=== PATIENT | female | born 1975 | race Caucasian/White ===

== ENCOUNTER 2023-05-29 11:40 | Inpatient (IN) ==
--- NOTE | 2023-05-29 11:58 | ED Triage Note ---
Date of Service May 29, 2023 Provider in Triage Author: Edgardo Boogie History of Present Illness This patient was briefly evaluated while in triage. An abbreviated physical exam was performed. This patient is a 47-year-old Female who was referred to the emergency department from [facility] for evaluation of shortness of breath, fever and increased pulse rate. Patient reports that no testing was done at [facility]. There is concern for pneumonia. The patient does have COPD as well, and has not tried her inhaler as she was concerned that she would vomit. Physical Exam CONSTITUTIONAL: Healthy and well nourished. HEENT: No scleral icterus or conjunctival injection/pallor. NECK: Full active range of motion without discomfort. LYMPHATICS: No cervical chain adenopathy. RESPIRATORY: Clear to auscultation bilaterally with no wheezing, crackles, rhonchi or stridor. Lung sounds are distant. MUSCULOSKELETAL: Full range of motion of all joints without discomfort. INTEGUMENTARY: No rash or other significant dermatologic conditions noted. HEMATOLOGIC: No ecchymosis or petechiae. PSYCHIATRIC: Positive affect. NEUROLOGIC: No focal neurologic deficits noted. Initial orders for labs and / or imaging were placed and patient was placed in the waiting area until a bed is available. Please see further documentation for the full ED course.
[2023-05-29 12:24] LABS: Hematocrit (blood only) 38.6 % (37.0-47.0); Hemoglobin 12.5 g/dl (12.0-16.0); Mean Corpuscular Hemoglobin 31.3 pg (25.0-34.0); Mean Corpuscular Hgb Conc 32.4 g/dL (32.0-36.0); Mean Corpuscular Volume 96.7 fL (80.0-100.0); Mean Platelet Volume 9.6 fL (9.4-12.4); Platelet Count 261 K/uL (130-400); RDW Coefficient of Variation 15.1 % (11.5-14.5); RDW Standard Deviation 54.1 fL (36.4-46.3); Red Blood Count 3.99 M/uL (4.20-5.40); White Blood Count 18.63 K/ul (4.8-10.8)
--- NOTE | 2023-05-29 12:36 | XRay Report ---
XR chest 1V portable HISTORY: 47 years-old Female Dyspnea COMPARISON: Chest CT 02/21/2019 TECHNIQUE: AP view of the chest FINDINGS: Cardiac silhouette is normal in size. No pneumothorax, pleural effusion or overt pulmonary edema. The re is dense left perihilar/left upper lobe consolidation along with a 2.6 and meter nodular focus of consolidation within left midlung. There is an additional 1.3 cm nodular focus of consolidation withi n the left lung base. The right lung is clear. Bones appear grossly intact. IMPRESSION: Airspace consolidation throughout the left lung favors pneumonia, however short-term foll ow-up radiographs after treatment course are needed in order to document complete resolution. ACT 112: Negative or not required by law. The above report was generated using voice recognition software. It may contain grammatical, syntax o r spelling errors. Electronically signed by: Kristian Mendiola M.D. 05/29/2023 12:34 PM
[2023-05-29 12:52] LABS: Albumin Level 3.9 gm/dl (3.4-5.0); BUN Creatinine Ratio 9.4 (10-20); Bilirubin,Total 0.6 mg/dl (0.2-1.0); Calcium 9.3 mg/dl (8.6-10.3); Creatinine Clr Calc Pharmacy 70.7 ml/min; Est GFR (African American) 93.9 ml/min; Globulin 3.9 gm/dl (2.5-4.0); Magnesium 2.1 mg/dl (1.7-2.4); Potassium 2.9 mmol/L (3.5-5.1); Total Protein 7.8 gm/dl (6.0-8.3)
[2023-05-29 12:56] LABS: INR 0.9 (0.9-1.1); Partial Thromboplastin Ratio 1.1; Partial Thromboplastin Time 31 Seconds (21-31); Prothrombin Time 10.3 Seconds (9.0-12.0)
[2023-05-29 12:58] LABS: Troponin I High Sensitivity 19.6 pg/ml (0-14)
[2023-05-29 13:01] LABS: Pregnancy Test, Serum Negative (Negative)
[2023-05-29 13:07] LABS: Dohle Bodies Occasional
[2023-05-29 13:13] LABS: Basophils % (auto) 0.5 %; Eosinophils # (auto) 0.01 K/uL (0.00-0.50); Eosinophils % (auto) 0.1 %; Immature Granulocytes # (auto) 0.46 K/uL (0.01-0.20); Immature Granulocytes % (auto) 2.5 %; Lymphocytes # (auto) 0.81 K/uL (1.20-3.40); Lymphocytes % (auto) 4.3 %; Monocytes # (auto) 0.28 K/uL (0.11-0.59); Monocytes % (auto) 1.5 %; Neutrophils # (auto) 16.97 K/uL (1.40-6.50); Neutrophils % (auto) 91.1 %
[2023-05-29 13:31] LABS: Adenovirus PCR Not Detected (NotDetected); Bordetella parapertussis PCR Not Detected (NotDetected); Bordetella pertussis PCR Not Detected (NotDetected); Chlamydia pneumoniae PCR Not Detected (NotDetected); Coronavirus 229E PCR Not Detected (NotDetected); Coronavirus CoV-2 (COVID19)PCR Not Detected (NotDetected); Coronavirus HKU1 PCR Not Detected (NotDetected); Coronavirus NL63 PCR Not Detected (NotDetected); Coronavirus OC43PCR Not Detected (NotDetected); Human Metapneumovirus PCR Not Detected (NotDetected); Influenza A PCR Not Detected (NotDetected); Influenza B PCR Not Detected (NotDetected); Mycoplasma pneumoniae PCR Not Detected (NotDetected); Parainfluenza Virus 1 PCR Not Detected (NotDetected); Parainfluenza Virus 2 PCR Not Detected (NotDetected); Parainfluenza Virus 3 PCR Not Detected (NotDetected); Parainfluenza Virus 4 PCR Not Detected (NotDetected); Respiratory Syncytial VirusPCR Not Detected (NotDetected); Rhinovirus/Enterovirus PCR Not Detected (NotDetected)
[2023-05-29] MEDS: POTASSIUM CHLORIDE / WTR 10 MEQ/100 ML PLCT IV SCH (14:32)
[2023-05-29] MEDS: SODIUM CHLORIDE 0.9% 2,000 ML IV ONE (14:33)
--- NOTE | 2023-05-29 14:34 | Emergency Department Note ---
Impression & Plan Community acquired pneumonia, Leukocytosis, Acute hypokalemia, Non-ST elevation MT (NSTEMI), Sepsis, Elevated procalcitonin ED Provider Note HISTORY OF PRESENT ILLNESS: Patient is a 47-year-old female presenting with shortness of breath and left- sided chest pain. Patient reports that for the last 3 days she has been having a fever up to 102. She states that she also developed left-sided chest pain and difficulty breathing. Reports that she has immense pain in the left side of her chest every time she tries to take a deep breath. Denies any DVT or PE history. She is not on any anticoagulation. She has a history of COPD/asthma. Denies any recent antibiotic or steroid use. She denies any recent sick contact exposures. She does report she had a fever of 102 earlier this morning and last took an antipyretic at 4 AM. She denies any history of cardiac stents. She denies any nausea or vomiting. Denies any recent travel. ROS: as above PHYSICAL EXAM: Constitutional: Patient appears in no acute distress. HENT: Head: Normocephalic and atraumatic. Eyes: EOMI, PERRL Mouth/Throat: Mucous membranes moist. Neck: Trachea midline. Neck supple. Cardiovascular: Tachycardic with regular rhythm. No murmurs, rubs or gallops. Intact distal pulses. Pulmonary/Chest: No respiratory distress. Breath sounds clear and equal bilaterally. Patient is tachypneic. Abdominal: Abdomen soft, no tenderness, rebound or guarding. Musculoskeletal: No edema, tenderness or deformity noted. Skin: Warm and dry. No rash, erythema, pallor or cyanosis Psychiatric: Appropriate mood and affect for situation. Neurological: Alert and keenly responsive. CN II-XII grossly intact, moving all extremities equally and fully. MDM: - Vitals signs showed tachycardia and tachypnea. - History obtained via patient. History as above. - Chronic conditions affecting care: COPD - Differential diagnoses include, but are not limited to: acute coronary syndrome; COPD/asthma exacerbation; pulmonary edema; pulmonary embolism; pneumonia; pneumothorax; viral syndrome - Order placed for continuous cardiac monitoring. At this time, monitor showed rate of 119 bpm with normal sinus rhythm, per my interpretation. - External medical records reviewed. Pulmonary office visit dated 04/14/2023 was reviewed. Patient follows in their clinic for her COPD and allergic asthma. - EKG interpreted by myself showed normal sinus rhythm. Rate tachycardic at 109 bpm. QT 328. No acute ischemic changes. - Laboratory workup interpreted by myself showed leukocytosis (WBC 18.63) with left shift; normal PT/INR; hyponatremia (Na 132); hypokalemia (K 2.9); normal magnesium; elevated troponin (19.6); elevated procalcitonin (3.21) - CXR shows left-sided middle lobe pneumonia, per my interpretation - Given patient's tachycardia, tachypnea, leukocytosis and pneumonia, she meets sepsis criteria. Blood cultures, procalcitonin and lactate ordered. 2L NS ordered - patient's sepsis fluid volume resuscitation based on ideal body weight is 1500 mL. - IV rocephin and doxycycline ordered for community acquired pneumonia coverage. - Patient given 30 mEq IV potassium total for electrolyte replacement. - NSTEMI likely type II in setting of pneumonia. - Patient given 1g IV tylenol and 50 mcg IV fentanyl for her chest pain. - Discussion was had with [employer] about patient's case and need for admission - Hospitalist consulted for admission - Patient admitted to [facility] service for further evaluation and management. ASSESSMENT AND PLAN: Diagnosis: community acquired pneumonia; leukocytosis; acute hypokalemia; sepsis; NSTEMI; elevated procalcitonin Plan: Admit Past Med/Surg History Medical History (Updated 05/29/23 @ 15:23 by Amparo Elizondo MD) Chronic obstructive pulmonary disease on long-term inhaled steroid therapy Allergic asthma Shortness of breath Pulmonary air trapping COPD (chronic obstructive pulmonary disease) Engages in non-nicotine containing substance vaping Tobacco abuse Electronic cigarette use Abnormal CT scan, chest Left upper lobe pulmonary nodule Bronchiectasis without complication Moderate persistent asthma without complication Borderline personality disorder History of gestational diabetes History of abnormal cervical Pap smear Cervical cancer COPD (chronic obstructive pulmonary disease) OCD (obsessive compulsive disorder) Anxiety Surgical History S/P wisdom tooth extraction H/O LEEP History of cataract surgery bilateral History of myringotomy BMT (1983) History of adenoidectomy History of tonsillectomy Family History Denies family history of Ovarian cancer Breast cancer Colorectal cancer Uterine cancer Social History (Updated 09/10/22 @ 12:56 by Odette Higgins RN) Smoking Status: Never smoker Tobacco Type: E-cigarettes / Vaping Age Started Using Tobacco: 12; Age Quit Using Tobacco: 44; Cigarettes Per Day: quit cigarettes in 2020 and started vaping; Second Hand Exposure: Yes; Do You Dip or Chew Tobacco: No; Hx Alcohol Use: Yes Alcohol type: beer Hx Substance Use: Yes (medical marijuana (have not used since moved 10/2018)) Last Used Substance Other:: 10/2018 Preferred Language: Estonian Communication Ability: Effective Potato Sorter Required: No Beliefs That Will Affect Care: None Current Living Situation: Spouse Feels Safe at Home: Yes Assistive Devices: Glasses Allergies Allergies Allergy/AdvReac Type Severity Reaction Status Date / Time azithromycin [From Zithromax] Allergy Severe Anaphylaxis Verified 04/08/23 14:06 erythromycin base AdvReac Mild Nausea Verified 04/08/23 14:06 Home Meds Home Medications Medication Instructions Recorded Confirmed lamotrigine 200 mg tablet 200 mg PO BID 11/24/18 05/29/23 desvenlafaxine succinate 25 mg See Rx Instructions .Route .COMPLEX 01/12/20 05/29/23 tablet,extended release 24 hr (Pristiq) aripiprazole 5 mg tablet (Abilify) 2.5 mg PO DAILY 02/25/22 05/29/23 acetaminophen 500 mg tablet 500 mg PO Q6H PRN Pain 05/29/23 05/29/23 desvenlafaxine succinate 50 mg See Rx Instructions .Route .COMPLEX 05/29/23 05/29/23 tablet,extended release 24 hr ibuprofen 200 mg tablet (Advil) 200 mg PO Q6H PRN Pain 05/29/23 05/29/23 mirabegron 25 mg tablet,extended 25 mg PO DAILY 05/29/23 05/29/23 release 24 hr (Myrbetriq) trazodone 50 mg tablet 25 - 50 mg PO HS 05/29/23 05/29/23 Previous Rx's Medication Instructions Recorded nebulizers #1 ea 05/16/21 albuterol sulfate 90 mcg/actuation 2 puff inhalation QID PRN 11/28/22 aerosol inhaler SHORTNESS OF BREATH #18 grams montelukast 10 mg tablet 10 mg PO DAILY #30 tabs 12/22/22 fluticasone fur. 200 mcg-umeclid 1 inh inhalation DAILY #60 ea 04/15/23 62.5 mcg-vilant 25 mcg inhalat.powder (Trelegy Ellipta) Results & Data (ED) Vital Signs Vital Signs - 24 hr 05/29/23 11:54 05/29/23 14:13 05/29/23 14:14 Temperature 37.3 C Temperature Source Temporal Artery Scan Pulse Rate 118 H 118 H Pulse Rate [Apical] 118 H Pulse Rate from SpO2 Sensor Pulse Rhythm Regular Pulse Rhythm [Apical] Regular Pulse Strength [Apical] Normal Respiratory Rate 17 26 H 26 H Respiratory Effort / Characteristics Non-Labored Spontaneous Spontaneous Short of Breath Respiratory Depth Normal Shallow Respiratory Pattern Tachypnea Blood Pressure 122/75 Blood Pressure [Right Arm] 131/81 Blood Pressure Mean 90 Blood Pressure Mean [Right Arm] 97 Blood Pressure Position [Right Arm] Standing Pulse Oximetry 98 93 93 Oxygen Delivery Method Room Air Room Air Room Air Sepsis Recent Fever Within 48 Hours Yes Sepsis New/Unexplained Change in Mental Status No Sepsis Action Taken by Nursing No Action Required 05/29/23 14:20 05/29/23 14:22 05/29/23 14:30 Temperature Temperature Source Pulse Rate 112 H 109 H Pulse Rate [Apical] Pulse Rate from SpO2 Sensor 111 H Pulse Rhythm Pulse Rhythm [Apical] Pulse Strength [Apical] Respiratory Rate 19 Respiratory Effort / Characteristics Respiratory Depth Respiratory Pattern Blood Pressure 132/80 Blood Pressure [Right Arm] Blood Pressure Mean 87 Blood Pressure Mean [Right Arm] Blood Pressure Position [Right Arm] Pulse Oximetry 97 Oxygen Delivery Method Sepsis Recent Fever Within 48 Hours Sepsis New/Unexplained Change in Mental Status Sepsis Action Taken by Nursing 05/29/23 14:30 05/29/23 14:40 05/29/23 14:50 Temperature Temperature Source Pulse Rate 109 H 109 H 111 H Pulse Rate [Apical] Pulse Rate from SpO2 Sensor 108 H 110 H 111 H Pulse Rhythm Pulse Rhythm [Apical] Pulse Strength [Apical] Respiratory Rate 21 17 15 Respiratory Effort / Characteristics Respiratory Depth Respiratory Pattern Blood Pressure Blood Pressure [Right Arm] Blood Pressure Mean Blood Pressure Mean [Right Arm] Blood Pressure Position [Right Arm] Pulse Oximetry 96 98 96 Oxygen Delivery Method Sepsis Recent Fever Within 48 Hours Sepsis New/Unexplained Change in Mental Status Sepsis Action Taken by Nursing 05/29/23 15:00 05/29/23 15:00 05/29/23 15:10 Temperature Temperature Source Pulse Rate 110 H 110 H Pulse Rate [Apical] Pulse Rate from SpO2 Sensor 109 H 110 H Pulse Rhythm Pulse Rhythm [Apical] Pulse Strength [Apical] Respiratory Rate 15 21 Respiratory Effort / Characteristics Respiratory Depth Respiratory Pattern Blood Pressure 113/71 Blood Pressure [Right Arm] Blood Pressure Mean 85 Blood Pressure Mean [Right Arm] Blood Pressure Position [Right Arm] Pulse Oximetry 96 95 Oxygen Delivery Method Sepsis Recent Fever Within 48 Hours Sepsis New/Unexplained Change in Mental Status Sepsis Action Taken by Nursing Laboratory Data 05/29/23 12:07 05/29/23 12:07 Lab Results 05/29/23 05/29/23 Range/Units 12:00 12:07 WBC 18.63 H (4.8-10.8) K/ul RBC 3.99 L (4.20-5.40) M/uL Hgb 12.5 (12.0-16.0) g/dl Hct 38.6 (37.0-47.0) % MCV 96.7 (80.0-100.0) fL MCH 31.3 (25.0-34.0) pg MCHC 32.4 (32.0-36.0) g/dL RDW Std Deviation 54.1 H (36.4-46.3) fL RDW Coeff of Vidhi 15.1 H (11.5-14.5) % Plt Count 261 (130-400) K/uL MPV 9.6 (9.4-12.4) fL Immature Gran % (Auto) 2.5 % Neut % (Auto) 91.1 % Lymph % (Auto) 4.3 % [place] % (Auto) 1.5 % Eos % (Auto) 0.1 % Baso % (Auto) 0.5 % Neut # (Auto) 16.97 H (1.40-6.50) K/uL Lymph # (Auto) 0.81 L (1.20-3.40) K/uL [place] # (Auto) 0.28 (0.11-0.59) K/uL Eos # (Auto) 0.01 (0.00-0.50) K/uL Baso # (Auto) 0.10 (0.00-0.20) K/uL Immature Gran # (Auto) 0.46 H (0.01-0.20) K/uL Dohle Bodies Occasional PT 10.3 (9.0-12.0) Seconds INR 0.9 (0.9-1.1) APTT 31 (21-31) Seconds PTT Ratio 1.1 Sodium 132 L (136-145) mmol/L Potassium 2.9 L (3.5-5.1) mmol/L Chloride 95 L (98-107) mmol/L Carbon Dioxide 27 (21-32) mmol/L Anion Gap 10 (3-11) BUN 8 (6-23) mg/dl Creatinine 0.85 (0.6-1.2) mg/dl Est Cr Clr Drug Dosing 70.7 ml/min Est GFR ( Amer) 93.9 ml/min Est GFR (Non-Af Amer) 81.0 ml/min BUN/Creatinine Ratio 9.4 L (10-20) Glucose 167 H (70-99(Fasting)) mg/dl Calcium 9.3 (8.6-10.3) mg/dl Magnesium 2.1 (1.7-2.4) mg/dl Total Bilirubin 0.6 (0.2-1.0) mg/dl AST 20 (13-39) U/L ALT 17 (7-52) U/L Alkaline Phosphatase 100 (34-104) U/L Troponin I High Sens 19.6 H (0-14) pg/ml Total Protein 7.8 (6.0-8.3) gm/dl Albumin 3.9 (3.4-5.0) gm/dl Globulin 3.9 (2.5-4.0) gm/dl Albumin/Globulin Ratio 1.0 (0.9-2) Procalcitonin 3.21 H (0-0.5) ng/ml HCG, Qual Negative (Negative) Adenovirus (PCR) Not Detected (NotDetected) B. pertussis DNA (PCR) Not Detected (NotDetected) B.parapertussis DNA PCR Not Detected (NotDetected) C. pneumoniae DNA (PCR) Not Detected (NotDetected) Coronavirus OC43 (PCR) Not Detected (NotDetected) Coronavirus HKU1 (PCR) Not Detected (NotDetected) Coronavirus 229E (PCR) Not Detected (NotDetected) SARS-CoV-2 (PCR) Not Detected (NotDetected) Coronavirus NL63 (PCR) Not Detected (NotDetected) Human Metapneumovir PCR Not Detected (NotDetected) Influenza Type A (PCR) Not Detected (NotDetected) Influenza Type B (PCR) Not Detected (NotDetected) M. pneumoniae (PCR) Not Detected (NotDetected) Parainfluenza 1 (PCR) Not Detected (NotDetected) Parainfluenza 2 (PCR) Not Detected (NotDetected) Parainfluenza 3 (PCR) Not Detected (NotDetected) Parainfluenza 4 (PCR) Not Detected (NotDetected) RSV (PCR) Not Detected (NotDetected) Entero/Rhino (PCR) Not Detected (NotDetected) Administered Medications Sodium Chloride (Nss) 2,000 mls @ 999 mls/hr IV .Q2H1M ONE Stop: 05/29/23 16:19 Last Admin: 05/29/23 14:33 Dose: 999 mls/hr Documented By: LUIZ Potassium Chloride (K Jorge / Wtr) 10 meq in 100 mls @ 100 mls/hr IV Q1H NICOLE Stop: 05/29/23 17:29 Last Admin: 05/29/23 14:32 Dose: 100 mls/hr Documented By: LUIZ Discontinued Medications Fentanyl Citrate (Fentanyl Citrate Pf 100 Mcg/2 Ml Vial) 50 mcg IV NOW STA Stop: 05/29/23 14:32 Last Admin: 05/29/23 14:44 Dose: 50 mcg Documented By: VOLODYMYR Ceftriaxone Sodium (Rocephin) 1,000 mg in 50 mls @ 100 mls/hr IV NOW STA Stop: 05/29/23 14:48 Last Admin: 05/29/23 15:11 Dose: 100 mls/hr Documented By: VOLODYMYR Acetaminophen (Ofirmev) 1,000 mg in 100 mls @ 400 mls/hr IV NOW STA Stop: 05/29/23 14:45 Last Infusion: 05/29/23 14:58 Dose: Infused Documented By: Admin: 05/29/23 14:43 Dose: 400 mls/hr Documented By: VOLODYMYR Imaging Data Radiologist's Impression: Chest X-Ray 05/29/23 11:58 XR chest 1V portable HISTORY: 47 years-old Female Dyspnea COMPARISON: Chest CT 02/21/2019 TECHNIQUE: AP view of the chest FINDINGS: Cardiac silhouette is normal in size. No pneumothorax, pleural effusion or overt pulmonary edema. There is dense left perihilar/left upper lobe consolidation along with a 2.6 and meter nodular focus of consolidation within left midlung. There is an additional 1.3 cm nodular focus of consolidation within the left lung base. The right lung is clear. Bones appear grossly intact. IMPRESSION: Airspace consolidation throughout the left lung favors pneumonia, however short-term follow-up radiographs after treatment course are needed in order to document complete resolution. ACT 112: Negative or not required by law. The above report was generated using voice recognition software. It may contain grammatical, syntax or spelling errors. Electronically signed by: Kristian Mendiola M.D. 05/29/2023 12:34 PM Discharge Plan Visit Data Chief Complaint: Shortness of Breath/Dyspnea Stated Complaint: SOB, FEVER, HIGH PLUSE RATE ED Provider: Amparo Elizondo Discharge Problem: Community acquired pneumonia, Leukocytosis, Acute hypokalemia, Non-ST elevation MT (NSTEMI), Sepsis, Elevated procalcitonin Forms Stand Alone Forms: My [facility] [place] [employer] Prescriptions Prescriptions: No Action montelukast 10 mg tablet 10 mg PO DAILY Qty: 30 6RF Trelegy Ellipta 200-62.5-25 mcg blister with device 1 inh inhalation DAILY Qty: 60 2RF (DME) nebulizers Mis See Rx Instructions .Route Qty: 1 0RF Rx Instructions: As directed desvenlafaxine succinate [Pristiq] 25 mg tablet extended release 24 hr See Rx Instructions .ROUTE .COMPLEX Rx Instructions: Take 25mg w/ 50mg tablet to equal 75mg by mouth every morning aripiprazole [Abilify] 5 mg tablet 2.5 mg PO DAILY albuterol sulfate 90 mcg/actuation HFA aerosol inhaler 2 puff inhalation QID PRN (Reason: SHORTNESS OF BREATH) Qty: 18 3RF lamotrigine 200 mg tablet 200 mg PO BID trazodone 50 mg tablet 25 - 50 mg PO HS acetaminophen [Tylenol Ex Str Rapid Release] 500 mg Tablet 500 mg PO Q6H PRN (Reason: Pain) ibuprofen [Advil] 200 mg Tablet 200 mg PO Q6H PRN (Reason: Pain) desvenlafaxine succinate 50 mg tablet extended release 24 hr See Rx Instructions .ROUTE .COMPLEX Rx Instructions: Take 50mg w/ 25mg tablet to equal 75mg by mouth every morning Myrbetriq 25 mg tablet extended release 24 hr 25 mg PO DAILY Referrals Referrals: Ena Chang PA-C [Primary Care Provider] -
[2023-05-29] MEDS: ACETAMINOPHEN 1,000 MG/100 ML VIAL IV STA (14:43)
[2023-05-29] MEDS: fentaNYL citrate PF 100 MCG/2 ML VIAL IV STA (14:44)
[2023-05-29] MEDS: cefTRIAXone SODIUM 1,000 MG/50 ML BAG IV STA (15:11)
[2023-05-29] MEDS: DOXYCYCLINE HYCLATE 100 MG in DEXTROSE 5% MINI-B 100 ML IV STA (15:31)
--- NOTE | 2023-05-29 15:57 | History & Physical Report ---
Date of Service May 29, 2023 Assessment & Plan (1) Sepsis: Plan: Source = pneumonia Lactate initial 3.1. NSS 2L bolus ordered. Repeat pending. Follow up blood and sputum culture. (2) Community acquired pneumonia: Plan: Ceftriaxone + doxycycline Incentive spirometer Flutter valve Pleuritic pain - Acetaminophen 1st line, Toradol 2nd line, oxycodone 3rd line Follow up CXR in 4-6 weeks recommended for resolution especially with smoking history (3) Chronic obstructive pulmonary disease on long-term inhaled steroid therapy: Plan: No acute exacerbation suspected given lack of improvement of duonebs as outpatient and lack of wheezing on exam Continue her routine inhalers with duonebs PRN (4) Allergic asthma: (5) Engages in vaping: Plan: Encouraged cessation and she appears motivated to quit Plan VTE prophylaxis - Lovenox 40 mg subcu daily Diet - regular Disposition - admit to PCU Admission and Anticipated Discharge Date Admission Date: May 29, 2023 History of Present Illness Chief Complaint: Shortness of breath and chest pain Primary Care Provider: Ena Chang Zeinab Veronica is a 47 year old female with extensive smoking and current vaping history, COPD/asthma who presents to the ER with shortness of breath, left-sided chest pain, headache (mainly with coughing), non productive cough and fever. Symptoms started on Thursday - like someone laying on chest the left side of her chest, only painful on inspiration, not positional/exertional. Temp 102 yesterday. Saw PCP today and recommended coming to the ER due to fever and tachycardia. Allergies Allergy/AdvReac Type Severity Reaction Status Date / Time azithromycin [From Zithromax] Allergy Severe Anaphylaxis Verified 05/29/23 15:22 erythromycin base AdvReac Mild Nausea Verified 05/29/23 15:22 Home Medications Medication Instructions Recorded Confirmed Type lamotrigine 200 mg tablet 200 mg PO BID 11/24/18 05/29/23 History desvenlafaxine succinate 25 mg See Rx Instructions .Route .COMPLEX 01/12/20 05/29/23 History tablet,extended release 24 hr (Pristiq) nebulizers #1 ea 05/16/21 04/08/23 Rx aripiprazole 5 mg tablet (Abilify) 2.5 mg PO DAILY 02/25/22 05/29/23 History albuterol sulfate 90 mcg/actuation 2 puff inhalation QID PRN 11/28/22 05/29/23 Rx aerosol inhaler SHORTNESS OF BREATH #18 grams montelukast 10 mg tablet 10 mg PO DAILY #30 tabs 12/22/22 05/29/23 Rx fluticasone fur. 200 mcg-umeclid 1 inh inhalation DAILY #60 ea 04/15/23 05/29/23 Rx 62.5 mcg-vilant 25 mcg inhalat.powder (Trelegy Ellipta) acetaminophen 500 mg tablet 500 mg PO Q6H PRN Pain 05/29/23 05/29/23 History desvenlafaxine succinate 50 mg See Rx Instructions .Route .COMPLEX 05/29/23 05/29/23 History tablet,extended release 24 hr ibuprofen 200 mg tablet (Advil) 200 mg PO Q6H PRN Pain 05/29/23 05/29/23 History mirabegron 25 mg tablet,extended 25 mg PO DAILY 05/29/23 05/29/23 History release 24 hr (Myrbetriq) trazodone 50 mg tablet 25 - 50 mg PO HS 05/29/23 05/29/23 History Past Med/Surg History Medical History (Updated 05/29/23 @ 19:09 by Toro Owens MD) Chronic obstructive pulmonary disease on long-term inhaled steroid therapy Allergic asthma Shortness of breath Pulmonary air trapping COPD (chronic obstructive pulmonary disease) Engages in non-nicotine containing substance vaping Tobacco abuse Electronic cigarette use Abnormal CT scan, chest Left upper lobe pulmonary nodule Bronchiectasis without complication Moderate persistent asthma without complication Borderline personality disorder History of gestational diabetes History of abnormal cervical Pap smear Cervical cancer COPD (chronic obstructive pulmonary disease) OCD (obsessive compulsive disorder) Anxiety Surgical History S/P wisdom tooth extraction H/O LEEP History of cataract surgery bilateral History of myringotomy BMT (1983) History of adenoidectomy History of tonsillectomy Family History Denies family history of Ovarian cancer Breast cancer Colorectal cancer Uterine cancer Social History (Updated 05/29/23 @ 19:04 by Toro Owens MD) Smoking Status: Former smoker Tobacco Type: Cigarettes and E-cigarettes / Vaping Age Started Using Tobacco: 12; Age Quit Using Tobacco: 44; Cigarettes Per Day: quit cigarettes in 2020 and started vaping; Second Hand Exposure: Yes; Do You Dip or Chew Tobacco: No; Hx Alcohol Use: No Hx Substance Use: No Preferred Language: Andorran Communication Ability: Effective Spray Blender Required: No Beliefs That Will Affect Care: None Current Living Situation: Spouse and Family Feels Safe at Home: Yes Safety Concerns: Feels Safe At This Time Assistive Devices: Denture - Upper, Denture - Lower and Nebulizer Review of Systems Review of Systems: All systems reviewed & are unremarkable except as noted in HPI & below Physical Exam Constitutional: WD/WN, vitals as above Eyes: + anicteric sclerae; normal pupil size ENMT: external ear and nose normal, oropharynx normal Mouth: oral mucous membranes not dry Neck: trachea midline, no thyromegaly Respiratory: normal respiratory effort; no respiratory distress Auscultation: + crackles (coarse left > right sided posteriorly and left laterally); breath sounds present and no diminished lung sounds Cardiovascular: Rate/Rhythm: regular rhythm and + tachycardic Heart Sounds: no murmur Extremities: normal capillary refill; no calf tenderness and no pedal edema Gastrointestinal (Abdomen): normal bowel sounds, soft, nontender, no hepatosplenomegaly Skin: no rashes, warm and dry Psychiatric: A+Ox3, euthymic affect Results & Data Results & Data Vital Signs (Past 12 Hours) Vital Signs Temp Pulse Pulse Resp BP BP Pulse Ox 05/29/23 15:30 102 H 21 94 05/29/23 15:30 109/72 05/29/23 15:20 102 H 15 95 05/29/23 15:10 110 H 21 95 05/29/23 15:00 110 H 15 96 05/29/23 15:00 113/71 05/29/23 14:50 111 H 15 96 05/29/23 14:40 109 H 17 98 05/29/23 14:30 109 H 21 96 05/29/23 14:30 132/80 05/29/23 14:22 109 H 05/29/23 14:20 112 H 19 97 05/29/23 14:14 118 H 26 H 131/81 93 05/29/23 14:13 118 H 26 H 93 05/29/23 11:54 37.3 C 118 H 17 122/75 98 O2 Del Method 05/29/23 15:30 05/29/23 15:30 05/29/23 15:20 05/29/23 15:10 05/29/23 15:00 05/29/23 15:00 05/29/23 14:50 05/29/23 14:40 05/29/23 14:30 05/29/23 14:30 05/29/23 14:22 05/29/23 14:20 05/29/23 14:14 Room Air 05/29/23 14:13 Room Air 05/29/23 11:54 Room Air Laboratory Results Abnormal lab results 05/29/23 05/29/23 Range/Units 12:07 15:07 WBC 18.63 H (4.8-10.8) K/ul RBC 3.99 L (4.20-5.40) M/uL RDW Std Deviation 54.1 H (36.4-46.3) fL RDW Coeff of Vidhi 15.1 H (11.5-14.5) % Neut # (Auto) 16.97 H (1.40-6.50) K/uL Lymph # (Auto) 0.81 L (1.20-3.40) K/uL Immature Gran # (Auto) 0.46 H (0.01-0.20) K/uL Sodium 132 L (136-145) mmol/L Potassium 2.9 L (3.5-5.1) mmol/L Chloride 95 L (98-107) mmol/L BUN/Creatinine Ratio 9.4 L (10-20) Glucose 167 H (70-99(Fasting)) mg/dl Lactate 3.1 H* (0.4-2.0) mmol/L Troponin I High Sens 19.6 H (0-14) pg/ml Procalcitonin 3.21 H (0-0.5) ng/ml Diagnostic Findings XR chest 1V portable HISTORY: 47 years-old Female Dyspnea COMPARISON: Chest CT 02/21/2019 TECHNIQUE: AP view of the chest FINDINGS: Cardiac silhouette is normal in size. No pneumothorax, pleural effusion or overt pulmonary edema. There is dense left perihilar/left upper lobe consolidation along with a 2.6 and meter nodular focus of consolidation within left midlung. There is an additional 1.3 cm nodular focus of consolidation within the left lung base. The right lung is clear. Bones appear grossly intact. IMPRESSION: Airspace consolidation throughout the left lung favors pneumonia, however short-term follow-up radiographs after treatment course are needed in order to document complete resolution. Medications Administered ER medications given: Ceftriaxone 1 g IV Acetaminophen 1 g IV Fentanyl 50 mcg IV Normal saline 2 L bolus Doxycycline 100 mg IV Potassium chloride 10 mEq IV x 3 ECG Rate (beats per minute): 109 Rhythm: sinus tachycardia Findings: + nonspecific-ST abn Comparison ECG Date: no prior available Code Status & VTE Plan Code Status Full VTE Prophylaxis Plan VTE Prophylaxis will be ordered: Yes PG Care Time/CCT Total # of Minutes Spent Total Time Spent with Patient: Total time spent is greater than 50% in coordination of care (as documented) at patient's floor/unit and/or counseling patient: Coding Level of Care Code 10899 INT INP/OBS CARE 3/75MIN Diagnoses Sepsis A41.9 Community acquired pneumonia J18.9 Chronic obstructive pulmonary disease on long-term inhaled steroid therapy J44.9; Z79.51 Severe persistent extrinsic asthma with acute exacerbation J45.51 Asthma complication type: with acute exacerbation Asthma persistence: persistent Asthma severity: severe Engages in vaping Z72.89 (4) Allergic asthma Asthma complication type: with acute exacerbation Asthma persistence: persistent Asthma severity: severe Qualified Code(s): J45.51 - Severe persistent asthma with (acute) exacerbation
[2023-05-29 16:43] LABS: Appearance Urine Clear (Clear); Bilirubin Urine Negative (Negative); Blood Urine Trace (Negative); Color Urine Yellow; Glucose Urine UA Negative (Negative); Ketones Urine Negative (Negative); Leukocyte Esterase Urine Trace (Negative); Nitrite Urine Negative (Negative); Protein Urine 1+ (Negative); Specific Gravity Urine 1.008 (1.000-1.030); Urobilinogen Urine Negative (Negative)
[2023-05-29] MEDS: KETOROLAC TROMETHAMINE 15 MG/ML VIAL IV ONE (16:56)
[2023-05-29] MEDS: FAMOTIDINE 20MG IV PUSH 20 MG/5 ML SYR IV STA (16:56)
[2023-05-29 17:02] LABS: Bacteria Urine Automated 1+ (Negative); Epithelial Cell Urine Auto 20-30 /lpf (0-5); RBC Urine Automated 0-4 /hpf (0-4)
[2023-05-29] MEDS: cefTRIAXone SODIUM 1,000 MG in DEXTROSE 5 % MINI-B 50 ML IV STA (17:28)
[2023-05-29] MEDS: PLASMA-LYTE A 1,000 ML IV SCH (18:17)
[2023-05-29] MEDS: POTASSIUM CHLORIDE CRTAB 20 MEQ TABCR PO STA (18:18)
[2023-05-29] MEDS: traZODone HCL 50 MG TAB PO SCH (21:03)
[2023-05-29] MEDS: lamoTRIgine 100 MG TAB PO SCH (21:03)
[2023-05-29] MEDS: DOXYCYCLINE HYCLATE 100 MG CAP PO SCH (21:03)
[2023-05-29] MEDS: ENOXAPARIN INJ 40 MG/0.4 ML SYR SQ SCH (21:04)
[2023-05-29] MEDS: ACETAMINOPHEN 325 MG TAB PO PRN (21:07)
[2023-05-29] MEDS: oxyCODONE HCL IR 5 MG TAB (IMMEDIATE RELEASE) PO PRN (21:07)
[2023-05-29] MEDS: ALBUT/IPRATROP 3MG/0.5MG NEB 3 ML VIAL NEB PRN (21:15)
[2023-05-30] MEDS: KETOROLAC 30 MG/ML VIAL IV PRN (00:39)
--- OUTSIDE RECORDS SUMMARY | 2023-05-30 01:50 | External Medical Summary | Continuity of Care Document ---
Author Name Unknown Organization [facility] [address] [place] [id number] Care Team Providers Care Staking Technician Name Role Phone Janeth Solano Primary Care Physician [phone] Encounter [id number] Date(s): 05/19/23 - 05/19/23 [facility] [address] [address] [phone] Encounter Diagnosis Body mass index [BMI] 25.0-25.9, adult(Discharge Diagnosis) - 05/19/23 Stress incontinence, female(Discharge Diagnosis) - 05/19/23 Spasm of back muscles(Discharge Diagnosis) - 05/19/23 Rash(Discharge Diagnosis) - 05/19/23 Rash and other nonspecific skin eruption(Final) - Discharge Disposition: Home or Self Care Attending Physician: CULLEN Chang Kimberly A Allergies, Adverse Reactions, Alerts Substance Reaction Severity Status erythromycin vomiting Active Zithromax Anaphylaxis Active Assessment and Plan Extracted from: Title:Office Visit Note Author:CULLEN Chang Kim berly A Date:05/19/23 1.Stress incontinence, fem javed STATUS:Chronic unstable. -Worse since entering into menopause -Is problematic with coughing, sneezing, etc -Already does Kegel exericses -Denies hematuria, dysuria, abdominal pain, flank pain DATA:Labs reviewed. GOAL:Maintain stability. PLAN:Cont current monitoring. .Trial of Myrbetriq 25mg daily May increase to 50mg daily if appropriate No fluids after 6pm Continue Kegel exercises If ineffective, will refer to pelvic floor PT Call with progress report in a few weeks 2.Spasm of back muscles STATUS:Chronic stable. -Follows with chiropractor -Does have spasms along the right lower paraspinal muscles -Does use heat and ice with some benefit -Denies any radicular symptoms or changes in bowels DATA:Labs reviewed. GOAL:Maintain stability. PLAN:Cont current monitoring. Flexeril 10mg twice daily for five days when spasms exacerbate Continue to follow with customer care associate Will get imaging if symptoms worsen Time spent on pre-visit plannin min Face to face time spent w/ patient:21 min Time spent documenting pertinent clinical information into the EMR:5 min Total time: 30 min Immunizations Given and Recorded Vaccine Date Status Refusal Reason SARS-CoV-2 (COVID-19) mRNA BNT-162b2 vax 1 07/26/20 Recorded SARS-CoV-2 (COVID-19) mRNA BNT-162b2 vax 2 07/06/20 Recorded influenza virus vaccine, inactivated 01/07/19 Henry rded 1Result Comment: 2021-09-02: Historical information-source unspecified 2Result Comment: 2021-09-02: Historical information-source unspecified Medications ALPRAZolam 0.5 mg oral tablet Start: 05/19/23 13:59:00 EDT, 2 tab, PO, ONCE, Disp# 4 tab, Refills: 0, 2 tablets one hour prior toprocedure., Pharmacy: [facility] Start Date: 05/19/23 Status: Ordered ARIPiprazole 5 mg oral tablet Start: 01/13/22 8:51:00 EST Start Date: 01/13/22 Status: Ordered cyclobenzaprine 10 mg oral tablet Start: 05/19/23 13:58:00 EDT, 1 tab, PO, bid, Disp# 20 tab, Refills: 1, PRN: as needed for spasm, Pharmacy: [facility] Start Date: 05/19/23 Status: Ordered lamoTRIgine 200 mg oral tablet Start: 03/09/19 10:16:00 EST, 2 tab, PO, Daily, Disp# 60 tab, Refills: 2, Pharmacy: [facility] Start Date: 03/09/19 Status: Ordered Medical Marijuana Start: 09/02/21 16:04:00 EDT Start Date: 09/02/21 Status: Ordered Myrbetriq 25 mg oral tablet, extended release Start: 05/19/23 13:58:00 EDT, 1 tab, PO, Daily, Disp# 90 tab, Refills: 1, Pharmacy: [facility] Start Date: 05/19/23 Stop Date: 11/15/23 Status: Ordered Pristiq Start: 11/11/19 11:13:00 EDT, 75 mg =, PO, Daily Start Date: 11/11/19 Status: Ordered ProAir HFA 90 mcg/inh inhalation aerosol Start: 07/13/21 10:37:00 EDT, 2 puff, inhaled, q6h, Disp# 1 each, Refills: 0, prn, Pharmacy: [facility] Start Date: 07/13/21 Status: Ordered Singulair Start: 01/07/21 9:07:00 EST Start Date: 01/07/21 Status: Ordered traZODone 50 mg oral tablet Start: 11/04/22 13:36:00 EDT Start Date: 11/04/22 Status: Ordered Trelegy Ellipta 100 mcg-62.5 mcg-25 mcg/inh inhalation powder Start: 05/19/23 13:27:00 EDT, 1 puff, inhaled, Daily Start Date: 05/19/23 Status: Ordered triamcinolone 0.5% topical cream Start: 04/07/23 14:49:00 EST, 1 appl, topical, bid, Disp# 20 g, Pharmacy: [facility] Start Date: 04/07/23 Stop Date: 05/07/23 Status: Ordered Mental Status 05/19/23 Barriers to Learning one year None evide nt Mandatory Health Literacy Documentation Yes Health Literacy Communication Barriers N ever Primary Language Palauan Problem List Condition Confirmation Course Effective Dates Status Health St atus Informant Abnormal weight gain Confirmed Active Asthma Confirmed Active Borderline personality disorder Confirmed Active Stress incontinence, female Confirmed Active Anxious depression Confirmed Active Spasm of back muscles Confirmed Active Tobacco user Confirmed Active Diagnosis Diagnosis Type Effective Dates Health Status Cl inical Service Informant Body mass index [BMI] 25.0-25.9, adult Discharge Diagnosis 05/19/23 Non-Specified Stress incontinence, female Discharge Diagnosis 05/19/23 Spasm of back muscles Discharge Diagnosis 05/19/23 Rash Discharge Diagnosis 05/19/23 Non-Specified Procedures Procedure Date Related Diagnosis Body Site Status Mammogram 1, 2, 3 02/09/19 Complet ed CE - Cataract extraction 12/09/16 Completed Extraction of wisdom tooth 12/09/93 Completed Myringotomy 12/10/83 Completed Tonsillectomy and adenoidectomy 12/09/81 Completed 1Amedned report received on 02/17/2019-AMENDED REPORT RECEIVED on 02/17/2019..prior outside mammgrams from [facility] dated 11/21/2014, 12/08/2015 and 12/10/2016 became available for review. There has been no significant interval change in the glandular tissue pattern compared to prior exams. No new suspicious masses, asymmetries, areas of architectural distortion or new suspicious calcifications identifed. Recommend routine screening mammography in 1 year. Amended Bi-RADS: ACR bi-RADS Category 1: Negative letter sent: [place] 02/24 3No mammographic evidence of malignancy. Prior outside mammograms are being requestedand if obtainedthey will be reviewed, compared to the current exam to asses for any more ubtle changes, and an addendum will be made to this report. Otherwise, a 1 year screening mammogram is recommended. Vital Signs Most recent to oldest [Reference Range]: 1 Height 159 cm (05/19/23 1:30 PM) Patient Weight 64.4 kg (05/19/23 1:30 PM) Body Mass Index 25.47 kg/m2 (05/19/23 1:30 PM) Heart Rate 85 bpm (05/19/23 1:30 PM) Respiratory Rate 18 br/min (05/19/23 1:30 PM) Blood Pressure 120/70mmHg (05/19/23 1:30 PM) Cuff Pulse Pressure 50 mmHg (05/19/23 1:30 PM) Social History Social History Type Response Tobacco Current every day sm oker, Cigarettes, Stopped age 43 Years. 1 Smoking Status Former Smoker, quit > 1 yr Sex Female 1changed to vaping & is on decreasing nicotine doses FCM Outpt Note * CULLEN Chang, Ena Corea: PERFORM Event Display: FCM Outpt Note Authored Date: [id number] Chief Complaint Incontinence x 2 years. Something for anxiety prior to colonoscopy. ? allergy blood test. History of Present Illness Patient is a 47 yo female who presents for several concerns: Stress incontinence: -Worse since entering into menopause -Is problematic with coughing, sneezing, etc -Already does Kegel exericses -Denies hematuria, dysuria, abdominal pain, flank pain -Denies any urinary retention or fecal incontinence Back pain: -Follows with chiropractor -Does have spasms along the right lower paraspinal muscles -Does use heat and ice with some benefit -Denies any radicular symptoms or changes in bowels -Denies any recent injuries or trauma -Lifting, bending and sitting on the floor exacerbates the symptoms Review of Systems ROS per HPI Physical Exam Vitals & Measurements HR:85(Monitored) RR:18 BP:120/70 SpO2:95% HT:159cm WT:64.4kg WT:64.400kg(Dosing) BMI:25.47 PHQ2 Data(Data Documented on:05/19/2023 13:28) Emotional health assessment NEGATIVE Gen Appearance: Well developed, well nourishedNAD. A&O x 3. HEENT: NCAT. EOMI. Neck supple. No thyromegaly palpable. Lymph: No submandibular, posterior or anterior cervical adenopathy. CV: RRR. No murmurs, rubs, or gallops. Lungs: CTAB. No wheezing, rales or rhonchi. Chest rises symmetrically. Abdomen: Scaphoid. No rashes.NABS x 4. Soft. Non-tender. No CVA tenderness bilaterally.No masses palpable. Ext: No LE edema. + 2 posterior tibial pulses. Skin: [place]. Supple. Good turgor. Assessment/Plan 1.Stress incontinence, female STATUS:Chronic unstable. -Worse since entering into menopause -Is problematic with coughing, sneezing, etc -Already does Kegel exericses -Denies hematuria, dysuria, abdominal pain, flank pain DATA:Labs reviewed. GOAL:Maintain stability. PLAN:Cont current monitoring. .Trial of Myrbetriq 25mg daily May increase to 50mg daily if appropriate No fluids after 6pm Continue Kegel exercises If ineffective, will refer to pelvic floor PT Call with progress report in a few weeks 2.Spasm of back muscles STATUS:Chronic stable. -Follows with chiropractor -Does have spasms along the right lower paraspinal muscles -Does use heat and ice with some benefit -Denies any radicular symptoms or changes in bowels DATA:Labs reviewed. GOAL:Maintain stability. PLAN:Cont current monitoring. Flexeril 10mg twice daily for five days when spasms exacerbate Continue to follow with customer care associate Will get imaging if symptoms worsen Time spent on pre-visit plannin min Face to face time spent w/ patient:21 min Time spent documenting pertinent clinical information into the EMR:5 min Total time: 30 min Problem List/Past Medical History Ongoing Abnormal weight gain Anxious depression Asthma Borderline personality disorder Spasm of back muscles Stress incontinence, female Tobacco user Historical Adult general medical exam Pneumonia Tobacco user Procedure/Surgical History Mammogram| Service Date: 02/09/2019CE - Cataract extraction| Service Date: 12/09/2016Extraction of wisdom tooth| Service Date: 12/09/1993Myringotomy| Service Date: 12/10/1983Tonsillectomy and adenoidectomy| Service Date: 12/09/1981 Medications albuterol(ProAir HFA 90 mcg/inh inhalation aerosol), 2 puff, inhaled, q6h ALPRAZolam(ALPRAZolam 0.5 mg oral tablet), 1 mg= 2 tab, PO, ONCE ARIPiprazole(ARIPiprazole 5 mg oral tablet) cannabis(Medical Marijuana) cyclobenzaprine(cyclobenzaprine 10 mg oral tablet), 10 mg= 1 tab, PO, bid, PRN, 1 refills desvenlafaxine(Pristiq), 75 mg, PO, Daily fluticasone/umeclidinium/vilanterol(Trelegy Ellipta 100 mcg-62.5 mcg-25 mcg/inh inhalation powder),1 puff, inhaled, Daily lamoTRIgine(lamoTRIgine 200 mg oral tablet), 400 mg= 2 tab, PO, Daily, 2 refills mirabegron(Myrbetriq 25 mg oral tablet, extended release), 25 mg= 1 tab, PO, Daily, 1 refills montelukast(Singulair) traZODone(traZODone 50 mg oral tablet) triamcinolone topical(triamcinolone 0.5% topical cream), 1 appl, topical, bid Allergies ZithromaxAnaphylaxis erythromycinvomiting Social History Smoking Status Former Smoker, quit > 1 yr Alcohol Use:Current Type:Beer Frequency:Daily Exercise Exercise type:Walking - Comments: 10,000 steps & 2.5 mi on stairs Sexual Sexually active:Yes Self described orientation:Straight or heterosexual Tobacco Use:Current every day smoker Type:Cigarettes Stopped at age:43Years - Comments: changed to vaping & is on decreasing nicotine doses Family History Alcoholism: Mother and Father. Glaucoma: PGM. Heart attack: MGM. Hypertension: Father and PGM. Respiratory disease: PGM. Skin cancer: Father and PGM. Stroke: Mother. Type II diabetes mellitus: Father and PGM. Health Status Family Member(s) Immunizations Vaccine Date Status SARS-CoV-2 (COVID-19) mRNA BNT-162b2 vax 07/26/2020 Recorded Comments : 2021-09-02: Historical information-source unspecified SARS-CoV-2 (COVID-19) mRNA BNT-162b2 vax 07/06/2020 Recorded Comments : 2021-09-02: Historical information-source unspecified influenza virus vaccine, inactivated 01/07/2019 Recorded Recommendations Health Maintenance Pending(in the next year) OverDue Adult Influenza Vaccine due08/22/22and every 1year Due Adult COVID-19 Vaccination due05/19/23Unknown Frequency Adult Social Determinants of Health Screening due05/19/23Unknown Frequency Adult Tdap/Td Vaccine due05/19/23Unknown Frequency Cervical Cancer Screening due05/19/23Unknown Frequency Colorectal Cancer Screening due05/19/23Unknown Frequency Pneumococcal Vaccine Adults and Adolescents with Chronic Illness due05/19/23One-time only Satisfied(in the past 1 year) Satisfied Body Mass Index on05/19/23.Satisfied by MALACHI Jamison Vanessa T Hepatitis C Screening on04/08/23.Satisfied by Contributor_system, [email or web address] Lipid Screening on04/08/23.Satisfied by Contributor_system, [email or web address] Electronic Signature on File Electronically Reviewed/Signed by: Ena Chang PA-C Author Signature Dt/Tm:05/19/2023 02:36 PM Department of Family [facility] Patient Care team information Care Team Personnel Name: MD Solano Amy L Position: Physician - Family Med Member Role: Primary Care Provider Address: Address: [address] [place] [address], [place] [address] [place] Care Team Related Persons Name: REN REYNOSO Address: home [address] [place] [address], [place] [id number]"
--- OUTSIDE RECORDS SUMMARY | 2023-05-30 01:50 | External Medical Summary | Continuity of Care Document ---
Author Name Unknown Organization [facility] [id number] [place] [phone] Care Team Providers Care Door Fitter Name Role Phone Janeth Solano Primary Care Physician [phone] Encounter [facility] [id number] Date(s): 04/17/23 - 04/17/23 [facility] [address] [place] [address] Medical Group [address] [address] [phone] Encounter Diagnosis Preop testing(Discharge Diagnosis) - 04/17/23 Encounter for other preprocedural examination(Final) - Discharge Disposition: Home or Self Care Attending Physician: CULLEN Chang Kimberly A Referring Physician: CULLEN Chang Kimberly A Allergies, Adverse Reactions, Alerts Substance Reaction Severity Status erythromycin vomiting Active Zithromax Anaphylaxis Active Immunizations Given and Recorded Vaccine Date Status Refusal Reason SARS-CoV-2 (COVID-19) mRNA BNT-162b2 vax 1 07/26/20 Recorded SARS-CoV-2 (COVID-19) mRNA BNT-162b2 vax 2 07/06/20 Recorded influenza virus vaccine, inactivated 01/07/19 Henry rded 1Result Comment: 2021-09-02: Historical information-source unspecified 2Result Comment: 2021-09-02: Historical information-source unspecified Medications ARIPiprazole 5 mg oral tablet Start: 01/13/22 8:51:00 EST Start Date: 01/13/22 Status: Ordered lamoTRIgine 200 mg oral tablet Start: 03/09/19 10:16:00 EST, 2 tab, PO, Daily, Disp# 60 tab, Refills: 2, Pharmacy: [id number] Start Date: 03/09/19 Status: Ordered Medical Marijuana Start: 09/02/21 16:04:00 EDT Start Date: 09/02/21 Status: Ordered Pristiq Start: 11/11/19 11:13:00 EDT, 75 mg =, PO, Daily Start Date: 11/11/19 Status: Ordered ProAir HFA 90 mcg/inh inhalation aerosol Start: 07/13/21 10:37:00 EDT, 2 puff, inhaled, q6h, Disp# 1 each, Refills: 0, prn, Pharmacy: [facility] Start Date: 07/13/21 Status: Ordered Singulair Start: 01/07/21 9:07:00 EST Start Date: 01/07/21 Status: Ordered traZODone 50 mg oral tablet Start: 11/04/22 13:36:00 EDT Start Date: 11/04/22 Status: Ordered triamcinolone 0.5% topical cream Start: 04/07/23 14:49:00 EST, 1 appl, topical, bid, Disp# 20 g, Pharmacy: [facility] Start Date: 04/07/23 Stop Date: 05/07/23 Status: Ordered Wixela Inhub 500 mcg-50 mcg inhalation powder Start: 11/04/22 13:35:00 EDT Start Date: 11/04/22 Status: Ordered Problem List Condition Confirmation Course Effective Dates Status Health St atus Informant Abnormal weight gain Confirmed Active Acute URI Confirmed Active Asthma Confirmed Active Borderline personality disorder Confirmed Active Anxious depression Confirmed Active Adult general medical exam Confirmed Active Pneumonia Confirmed Active Tobacco user Confirmed Active Diagnosis Diagnosis Type Effective Dates Health Status Cl inical Service Informant Preop testing Discharge Diagnosis 04/17/23 Non-Specified Procedures Procedure Date Related Diagnosis Body Site Status Mammogram 1, 2, 3 02/09/19 Complet ed CE - Cataract extraction 12/09/16 Completed Extraction of wisdom tooth 12/09/93 Completed Myringotomy 12/10/83 Completed Tonsillectomy and adenoidectomy 12/09/81 Completed 1Amedned report received on 02/17/2019-AMENDED REPORT RECEIVED on 02/17/2019..prior outside mammgrams from [facility] dated 11/21/2014, 12/08/2015 and 12/10/2016 [...] a 1 year screening mammogram is recommended. Results Orders for Microbiology Reports Name Date Nasal Culture (THROAT/NASAL CULTURE) 03/27 05/16 Microbiology Reports TEST:Thr/Nasal.Cx STATUS:Unauthenticated BODY SITE: SOURCE:Nasal COLLECTED DATE/TIME:04/17/23 3:00 PM Culture Culture in Progress Social History Social History Type Response Tobacco Current every day sm oker, Cigarettes, Stopped age 43 Years. 1 Smoking Status Former Smoker, quit > 1 yr Sex Female 1changed to vaping & is on decreasing nicotine doses Patient Care team information Care Team Personnel Name: MD Solano Amy L Position: Physician - Family Med Member Role: Primary Care Provider Address: Address: [address] [place] [id number] Care Team Related Persons Name: REN REYNOSO Address: home [address] [place] [phone]
[2023-05-30 05:51] LABS: A calco-baum cmplx NotReported Not Detected (NotDetected); Bact fragilis Not Reported Not Detected (NotDetected); Blood Culture Id Panel See PCR Comment (NotDetected); C auris Not Reported Not Detected (NotDetected); Calbicans Not Reported Not Detected (NotDetected); Candida glabrata Not Reported Not Detected (NotDetected); Candida krusei Not Reported Not Detected (NotDetected); Cneoformans/gatti Not Reported Not Detected (NotDetected); Cparapsilosis Not Reported Not Detected (NotDetected); E cloacae compx Not Reported Not Detected (NotDetected); Efaecalis Not Reported Not Detected (NotDetected); Efaecium Not Reported Not Detected (NotDetected); Enterobacterales Not Reported Not Detected (NotDetected); Escherichia coli Not Reported Not Detected (NotDetected); H influenzae Not Reported Not Detected (NotDetected); K aerogenes Not Reported Not Detected (NotDetected); Koxytoca Not Reported Not Detected (NotDetected); Kpneumoniae grp Not Reported Not Detected (NotDetected); Lmonocyt Not Reported Not Detected (NotDetected); N meningitidis Not Reported Not Detected (NotDetected); P aeruginosa Not Reported Not Detected (NotDetected); Proteus spp Not Reported Not Detected (NotDetected); Salmonella spp Not Reported Not Detected (NotDetected); Smarcescens Not Reported Not Detected (NotDetected); Staph lugdunensis Not Reported Not Detected (NotDetected); Staph spp. Not Reported Not Detected (NotDetected); Staphaureus Not Reported Not Detected (NotDetected); Staphepi Not Reported Not Detected (NotDetected); Stenmaltophilia Not Reported Not Detected (NotDetected); Strep agal(GrpB) Not Reported Not Detected (NotDetected); Strep pneum Not Reported DETECTED (NotDetected); Strep pyog (GrpA) Not Reported Not Detected (NotDetected); Strep spp Not Reported DETECTED (NotDetected); Streptococcus spp DETECTED (NotDetected)
[2023-05-30 06:20] LABS: Streptococcus pneumoniae DETECTED (NotDetected)
--- NOTE | 2023-05-30 07:00 | Hospitalist Progress Note ---
Date of Service May 30, 2023 Assessment & Plan (1) Sepsis: (2) Community acquired pneumonia: (3) Chronic obstructive pulmonary disease on long-term inhaled steroid therapy: (4) Engages in vaping: (5) Allergic asthma: Plan Pt is a 47 yo female with a past medical history of extensive smoking hx, current vaping, COPD not requiring home O2, and bronchiectasis who presents to the hospital on 05/28 for community acquired pneumonia with sepsis. #Sepsis - Source is most likely her concurrent pneumonia - Lactate initial 3.1 - s/p 2L NS bolus on 05/28 - blood cx; gram + in chains on prelim - continue IV CTX, will stop doxycycline today #Community acquired pneumonia - CXR 05/28 showed "Airspace consolidation throughout the left lung favors pneumonia" - Continue incentive spirometer, flutter valve - Pleuritic pain - Acetaminophen 1st line, Toradol 2nd line, oxycodone 3rd line - Follow up CXR in 4-6 weeks recommended for resolution especially with smoking history #Chronic obstructive pulmonary disease on long-term inhaled steroid therapy - No acute exacerbation suspected given lack of improvement of duonebs as outpatient and lack of wheezing on exam - Continue her routine inhalers with duonebs PRN #Allergic asthma #Engages in vaping - Encouraged cessation and she appears motivated to quit VTE prophylaxis; Lovenox 40 mg subQ daily IVF: plasmalyte 125/hr Admission and Anticipated Discharge Date Admission Date: May 29, 2023 Supervising Physician Co-Signing Physician Notes Attending Physician Supervision Note: I independently interviewed and examined the patient and verified the al history and physical, reviewed labs and image studies and agree with findings and care plan noted above. Sepsis with bacteremia - Gram + cocci in chain -IVF for pressor support -IV abx CAP - left lung - with bacteremia -IV rocephin -final cx pending. Allergic asthma/COPD - last PFT with severe airflow obstruction with very significant bronchodilator response. -No wheezing on exam/oxygenating well. -on inhaled steroids/LABA/LAMA - continue. continue other home meds Subjective Pt is a 47 yo female with a past medical history of extensive smoking hx, current vaping, COPD not requiring home O2, and bronchiectasis who presents to the hospital on 05/28 for community acquired pneumonia with sepsis. Today, pt states that a lot of her symptoms of cough and congestion have already started to improve quite a bit. She states she has had pneumonia maybe 10 times so far in her life, and while she was not hospitalized for all of them, she was hospitalized at least once before for pneumonia. She states she smoked for 35 years very heavily and now vapes. No questions or complaints at this point in time. Review of Systems Review of Systems: Constitutional: intermittent chills with this illness HEENT: mild congestion, no sore throat Cardio: denies chest pain, palpitations Resp: denies shortness of breath, dry cough noted GI: denies abdominal pain, nausea, vomiting, Physical Exam Physical Exam: General:Alert and oriented, no acute distress, HEENT: Normocephalic, moist oral mucosa, Cardio: Regular rate and rhythm, no murmur, Resp:Subpar air movement throughout lung buckner, with some crackles noted of the L upper and middle lobe region GI: Soft and nontender, nondistended, bowel sounds active Skin: Warm, pink, dry, Psych: Mood-affect congruence. Results & Data Results & Data Vital Signs (Past 12 Hours) Vital Signs Temp Pulse Pulse Resp BP BP Pulse Ox 05/30/23 02:36 36.4 C L 80 20 108/74 95 05/30/23 00:30 103 H 05/30/23 00:30 05/30/23 00:10 37.1 C 101 H 20 106/71 95 05/29/23 22:24 38.2 C H 05/29/23 22:20 131 H 18 95 05/29/23 22:10 127 H 31 H 95 05/29/23 22:00 129 H 05/29/23 22:00 129 H 25 H 96 05/29/23 22:00 118/68 05/29/23 21:50 131 H 32 H 95 05/29/23 21:40 132 H 30 H 93 05/29/23 21:34 38.2 C H 118 H 25 H 05/29/23 21:30 127 H 30 H 94 05/29/23 21:30 136/81 05/29/23 21:20 110 H 16 100 05/29/23 21:10 119 H 22 95 05/29/23 21:00 117 H 19 05/29/23 21:00 105/80 05/29/23 20:50 113 H 20 05/29/23 20:40 114 H 21 05/29/23 20:30 102/76 05/29/23 20:30 110 H 28 H 05/29/23 20:20 111 H 26 H 05/29/23 20:10 109 H 17 05/29/23 20:00 110/61 05/29/23 20:00 108 H 22 05/29/23 19:50 108 H 19 05/29/23 19:40 102 H 22 05/29/23 19:30 103 H 27 H 05/29/23 19:30 111/64 05/29/23 19:20 98 H 21 05/29/23 19:10 106 H 22 05/29/23 19:07 105 H 12 96 05/29/23 19:07 05/29/23 19:07 101 H 20 99 O2 Del Method O2 Flow Rate 05/30/23 02:36 Nasal Cannula 2 05/30/23 00:30 05/30/23 00:30 Nasal Cannula 2 05/30/23 00:10 Nasal Cannula 2 05/29/23 22:24 05/29/23 22:20 05/29/23 22:10 05/29/23 22:00 05/29/23 22:00 05/29/23 22:00 05/29/23 21:50 05/29/23 21:40 05/29/23 21:34 05/29/23 21:30 05/29/23 21:30 05/29/23 21:20 05/29/23 21:10 05/29/23 21:00 05/29/23 21:00 05/29/23 20:50 05/29/23 20:40 05/29/23 20:30 05/29/23 20:30 05/29/23 20:20 05/29/23 20:10 05/29/23 20:00 05/29/23 20:00 05/29/23 19:50 05/29/23 19:40 05/29/23 19:30 05/29/23 19:30 05/29/23 19:20 05/29/23 19:10 05/29/23 19:07 05/29/23 19:07 Room Air 05/29/23 19:07 Room Air Resident Activity Tracking Resident Involvement: Resident Care Provided Care Provided: Adult Hospital Medicine (5) Allergic asthma Asthma complication type: with acute exacerbation Asthma persistence: persistent Asthma severity: severe Qualified Code(s): J45.51 - Severe persistent asthma with (acute) exacerbation
--- NOTE | 2023-05-30 07:26 | Electrocardiogram Report ---
Test Reason : Blood Pressure : / mmHG Vent. Rate : 109 BPM Atrial Rate : 109 BPM P-R Int : 130 ms QRS Dur : 084 ms QT Int : 320 ms P-R-T Axes : 076 086 032 degrees QTc Int : 430 ms Sinus tachycardia Nonspecific ST abnormality Abnormal ECG No previous ECGs available Confirmed by Ramon Gutierrez ([id number]) on 05/30/2023 7:26:23 AM Referred By: REFERRED SELF Confirmed By:Ramon Gutierrez
[2023-05-30] MEDS: MONTELUKAST SODIUM 10 MG TABLET PO SCH (07:58)
[2023-05-30] MEDS: VIBEGRON 75 MG TAB PO SCH (07:58)
[2023-05-30] MEDS: ARIPiprazole 5 MG TAB PO SCH (07:59)
[2023-05-30] MEDS: UMECLIDINIUM/VILANTEROL 62.5/25MCG 7 PUFFS/INHALER INH SCH (08:00)
[2023-05-30] MEDS: FLUTICASONE FUROATE 200MCG 14 PUFFS/INHALER INH SCH (08:01)
[2023-05-30 08:02] LABS: Albumin Level 3.1 gm/dl (3.4-5.0); BUN Creatinine Ratio 12.1 (10-20); Bilirubin,Total 0.5 mg/dl (0.2-1.0); Calcium 7.7 mg/dl (8.6-10.3); Est GFR (African American) 121.1 ml/min; Est GFR (Non-African American) 104.5 ml/min; Globulin 3.1 gm/dl (2.5-4.0); Magnesium 2.4 mg/dl (1.7-2.4); Potassium 3.3 mmol/L (3.5-5.1); Total Protein 6.2 gm/dl (6.0-8.3)
[2023-05-30 08:16] LABS: Basophils # (auto) 0.09 K/uL (0.00-0.20); Basophils % (auto) 0.6 %; Eosinophils # (auto) 0.05 K/uL (0.00-0.50); Eosinophils % (auto) 0.3 %; Hematocrit (blood only) 34.5 % (37.0-47.0); Immature Granulocytes # (auto) 0.13 K/uL (0.01-0.20); Immature Granulocytes % (auto) 0.9 %; Lymphocytes # (auto) 1.45 K/uL (1.20-3.40); Lymphocytes % (auto) 9.8 %; Mean Corpuscular Hemoglobin 31.3 pg (25.0-34.0); Mean Corpuscular Hgb Conc 31.9 g/dL (32.0-36.0); Mean Corpuscular Volume 98.3 fL (80.0-100.0); Mean Platelet Volume 9.5 fL (9.4-12.4); Monocytes # (auto) 0.41 K/uL (0.11-0.59); Monocytes % (auto) 2.8 %; Neutrophils # (auto) 12.66 K/uL (1.40-6.50); Neutrophils % (auto) 85.6 %; Platelet Count 215 K/uL (130-400); RDW Coefficient of Variation 15.5 % (11.5-14.5); RDW Standard Deviation 56.3 fL (36.4-46.3); Red Blood Count 3.51 M/uL (4.20-5.40); White Blood Count 14.79 K/ul (4.8-10.8)
[2023-05-30] MEDS ORDERED: NON-FORMULARY MEDICATION (Fluticasone-Umeclidin-Vilanter [Trelegy Ellipta] 200-62.5-25 mcg INH SCH (09:00)
[2023-05-30] MEDS: POTASSIUM CHLORIDE CRTAB 20 MEQ TABCR PO STA (10:30)
[2023-05-30] MEDS: cefTRIAXone SODIUM 2,000 MG in DEXTROSE 5 % MINI-B 50 ML IV SCH (15:31)
--- NOTE | 2023-05-31 06:51 | Hospitalist Progress Note ---
Date of Service May 31, 2023 Assessment & Plan (1) Sepsis: (2) Community acquired pneumonia: (3) Chronic obstructive pulmonary disease on long-term inhaled steroid therapy: (4) Engages in vaping: (5) Allergic asthma: Plan Pt is a 47 yo female with a past medical history of extensive smoking hx, current vaping, COPD not requiring home O2, and bronchiectasis who presents to the hospital on 05/28 for community acquired pneumonia with sepsis. #Sepsis - Source is most likely her concurrent pneumonia - Lactate initial 3.1 - s/p 2L NS bolus on 05/28 - blood cx; strep pneumo, awaiting susceptibilities - continue IV CTX today #Community acquired pneumonia - CXR 05/28 showed "Airspace consolidation throughout the left lung favors pneumonia" - Continue incentive spirometer, flutter valve - Pleuritic pain - Acetaminophen 1st line, Toradol 2nd line, oxycodone 3rd line - Follow up CXR in 4-6 weeks recommended for resolution especially with smoking history #Chronic obstructive pulmonary disease on long-term inhaled steroid therapy - No acute exacerbation suspected given lack of improvement of duonebs as outpatient and lack of wheezing on exam - Continue her routine inhalers with duonebs PRN #Allergic asthma #Engages in vaping - Encouraged cessation and she appears motivated to quit VTE prophylaxis; Lovenox 40 mg subQ daily IVF: none Admission and Anticipated Discharge Date Admission Date: May 29, 2023 Supervising Physician Co-Signing Physician Notes Attending Physician Supervision Note: I independently interviewed and examined the patient and verified the al history and physical, reviewed labs and image studies and agree with findings and care plan noted above. Had panic attack last night. no other concerns. Sepsis with bacteremia - strep pneumo -IV abx CAP - left lung - with bacteremia -IV rocephin -final sensitivity pending Allergic asthma/COPD - last PFT with severe airflow obstruction with very significant bronchodilator response. -No wheezing on exam/oxygenating well. -on inhaled steroids/LABA/LAMA - continue. Anxiety - continue home meds - Pristiq. continue other home meds Subjective Pt is a 47 yo female with a past medical history of extensive smoking hx, current vaping, COPD not requiring home O2, and bronchiectasis who presents to the hospital on 05/28 for community acquired pneumonia with sepsis. Today, pt states she is feeling really good. She states she did end up having a panic attack last night when she just got overwhelmed with everything going on, but now is feeling much better and is in a much better head space. She states that she is going to stop vaping altogether from this point on and try to take better care of herself. She states her physiological chemist and PCP ordered labs to see if there would be any underlying reasons otherwise for why she gets recurrent pneumonias, but in the meantime she believes she has got to quit vaping. No questions or complaints today. Review of Systems Review of Systems: Cardio: denies chest pain, palpitations Resp: denies shortness of breath, dry cough noted GI: denies abdominal pain, nausea, vomiting, Physical Exam Physical Exam: General:Alert and oriented, no acute distress, HEENT: Normocephalic, moist oral mucosa, Cardio: Regular rate and rhythm, no murmur, Resp:Subpar air movement throughout lung buckner, with some crackles noted of the L upper and middle lobe region that are improved today GI: Soft and nontender, nondistended, bowel sounds active Skin: Warm, pink, dry, Psych: Mood-affect congruence. Results & Data Results & Data Vital Signs (Past 12 Hours) Vital Signs Temp Pulse Pulse Resp BP Pulse Ox O2 Del Method 05/31/23 03:16 36.9 C 90 18 128/81 100 Nasal Cannula 05/31/23 01:41 115 H 05/30/23 22:33 37.5 C 105 H 18 130/83 94 Nasal Cannula 05/30/23 21:41 Nasal Cannula 05/30/23 19:29 37.3 C 88 18 119/70 96 Nasal Cannula O2 Flow Rate 05/31/23 03:16 1 05/31/23 01:41 05/30/23 22:33 2 05/30/23 21:41 2 05/30/23 19:29 1 Resident Activity Tracking Resident Involvement: Resident Care Provided Care Provided: Adult Hospital Medicine (5) Allergic asthma Asthma complication type: with acute exacerbation Asthma persistence: persistent Asthma severity: severe Qualified Code(s): J45.51 - Severe persistent asthma with (acute) exacerbation
[2023-05-31 08:06] LABS: Hematocrit (blood only) 35.4 % (37.0-47.0); Hemoglobin 11.5 g/dl (12.0-16.0); Mean Corpuscular Hemoglobin 31.1 pg (25.0-34.0); Mean Corpuscular Hgb Conc 32.5 g/dL (32.0-36.0); Mean Corpuscular Volume 95.7 fL (80.0-100.0); Platelet Count 263 K/uL (130-400); RDW Coefficient of Variation 15.1 % (11.5-14.5); RDW Standard Deviation 53.1 fL (36.4-46.3); White Blood Count 13.18 K/ul (4.8-10.8)
[2023-05-31 08:21] LABS: BUN Creatinine Ratio 10.7 (10-20); Calcium 8.7 mg/dl (8.6-10.3); Creatinine Clr Calc Pharmacy 110.3 ml/min; Est GFR (African American) 127.8 ml/min; Est GFR (Non-African American) 110.3 ml/min; Potassium 3.5 mmol/L (3.5-5.1)
[2023-05-31 08:36] LABS: Basophils # (auto) 0.12 K/uL (0.00-0.20); Basophils % (auto) 0.9 %; Eosinophils # (auto) 0.19 K/uL (0.00-0.50); Eosinophils % (auto) 1.4 %; Immature Granulocytes # (auto) 0.55 K/uL (0.01-0.20); Immature Granulocytes % (auto) 4.2 %; Lymphocytes # (auto) 1.83 K/uL (1.20-3.40); Lymphocytes % (auto) 13.9 %; Monocytes # (auto) 0.59 K/uL (0.11-0.59); Monocytes % (auto) 4.5 %; Neutrophils % (auto) 75.1 %
[2023-05-31] MEDS: DESVENLAFAXINE~ORDER AWAITING ACTION SCH (12:15)
[2023-05-31] MEDS: DESVENLAFAXINE SUCCINATE 50 MG PO SCH (20:20)
--- NOTE | 2023-06-01 06:45 | Hospitalist Progress Note ---
Date of Service June 01, 2023 Assessment & Plan (1) Sepsis: (2) Community acquired pneumonia: (3) Chronic obstructive pulmonary disease on long-term inhaled steroid therapy: (4) Engages in vaping: (5) Allergic asthma: Plan Pt is a 47 yo female with a past medical history of extensive smoking hx, current vaping, COPD not requiring home O2, and bronchiectasis who presents to the hospital on 05/28 for community acquired pneumonia with sepsis. #Sepsis #Strep pneumo bacteremia - Source is most likely her concurrent pneumonia - Lactate initial 3.1 - s/p 2L NS bolus on 05/28 - blood cx; strep pneumo, appreciate susceptibilities, repeat cx pending - echo done in the stting of gram + bacteremia; pending - will consult ID for gram + bacteremia; pending - continue IV CTX today #Community acquired pneumonia - CXR 05/28 showed "Airspace consolidation throughout the left lung favors pneumonia" - Continue incentive spirometer, flutter valve - Pleuritic pain - Acetaminophen 1st line, Toradol 2nd line, oxycodone 3rd line - Follow up CXR in 4-6 weeks recommended for resolution especially with smoking history - AB per above #Chronic obstructive pulmonary disease on long-term inhaled steroid therapy - No acute exacerbation suspected given lack of improvement of duonebs as outpatient and lack of wheezing on exam - Continue her routine inhalers with duonebs PRN #Allergic asthma #Engages in vaping - Encouraged cessation and she appears motivated to quit VTE prophylaxis; Lovenox 40 mg subQ daily IVF: none Admission and Anticipated Discharge Date Admission Date: May 29, 2023 Supervising Physician Co-Signing Physician Notes I personally examined the patient and verified all al points of history and exam, discussed case, and agree with decision making with Dr Emanuel feeling better overall. discussed strep bacteremia Sepsis with bacteremia - strep pneumo -IV ceftriaxone. echo, repeat Cx. no joint or bone pain. ID consult. CAP - left lung - with bacteremia -IV rocephin -rec'd smoke cessation - with "frequent pneumonias" can also consider checking IgG after recovers from current infection Allergic asthma/COPD - last PFT with severe airflow obstruction with very significant bronchodilator response. -No wheezing on exam/oxygenating well. -on inhaled steroids/LABA/LAMA - continue. Anxiety - continue home meds - Pristiq. continue other home meds, DVT proph - lovenox Subjective Pt is a 47 yo female with a past medical history of extensive smoking hx, current vaping, COPD not requiring home O2, and bronchiectasis who presents to the hospital on 05/28 for community acquired pneumonia with sepsis. Today, pt states she is feeling pretty good. She states she is now starting to cough up some sputum now but otherwise is feeling better each day. Tolerating oral intake without issue. No chest pain or shortness of breath. Review of Systems Review of Systems: Cardio: denies chest pain, palpitations Resp: denies shortness of breath, dry cough noted GI: denies abdominal pain, nausea, vomiting, Physical Exam Physical Exam: General:Alert and oriented, no acute distress, HEENT: Normocephalic, moist oral mucosa, Cardio: Regular rate and rhythm, no murmur, Resp:Subpar air movement throughout lung buckner, with some crackles noted of the L upper and middle lobe region that are improved today GI: Soft and nontender, nondistended, bowel sounds active Skin: Warm, pink, dry, Psych: Mood-affect congruence. Results & Data Results & Data Vital Signs (Past 12 Hours) Vital Signs Temp Pulse Pulse Resp BP BP Pulse Ox 06/01/23 03:25 36.7 C 80 16 104/67 98 05/31/23 23:57 05/31/23 23:05 37.4 C 90 17 127/77 98 05/31/23 22:00 89 05/31/23 19:16 37.0 C 80 17 127/81 98 O2 Del Method O2 Flow Rate 06/01/23 03:25 Nasal Cannula 2 05/31/23 23:57 Nasal Cannula 2 05/31/23 23:05 Nasal Cannula 2 05/31/23 22:00 05/31/23 19:16 Nasal Cannula 2 Resident Activity Tracking Resident Involvement: Resident Care Provided Care Provided: Adult Hospital Medicine (5) Allergic asthma Asthma complication type: with acute exacerbation Asthma persistence: persistent Asthma severity: severe Qualified Code(s): J45.51 - Severe persi stent asthma with (acute) exacerbation
[2023-06-01 07:16] LABS: Hemoglobin 10.4 g/dl (12.0-16.0); Mean Corpuscular Hemoglobin 30.8 pg (25.0-34.0); Mean Corpuscular Hgb Conc 32.5 g/dL (32.0-36.0); Mean Corpuscular Volume 94.7 fL (80.0-100.0); Mean Platelet Volume 9.3 fL (9.4-12.4); Platelet Count 253 K/uL (130-400); RDW Coefficient of Variation 15.2 % (11.5-14.5); RDW Standard Deviation 53.1 fL (36.4-46.3); Red Blood Count 3.38 M/uL (4.20-5.40); White Blood Count 10.12 K/ul (4.8-10.8)
[2023-06-01 07:39] LABS: BUN Creatinine Ratio 13.1 (10-20); Calcium 8.5 mg/dl (8.6-10.3); Creatinine Clr Calc Pharmacy 101.3 ml/min; Est GFR (African American) 124.2 ml/min; Est GFR (Non-African American) 107.2 ml/min; Potassium 3.6 mmol/L (3.5-5.1)
[2023-06-01 07:57] LABS: Basophils # (auto) 0.09 K/uL (0.00-0.20); Basophils % (auto) 0.9 %; Eosinophils # (auto) 0.18 K/uL (0.00-0.50); Eosinophils % (auto) 1.8 %; Immature Granulocytes # (auto) 0.72 K/uL (0.01-0.20); Immature Granulocytes % (auto) 7.1 %; Lymphocytes # (auto) 1.58 K/uL (1.20-3.40); Lymphocytes % (auto) 15.6 %; Monocytes # (auto) 0.72 K/uL (0.11-0.59); Monocytes % (auto) 7.1 %; Neutrophils # (auto) 6.83 K/uL (1.40-6.50); Neutrophils % (auto) 67.5 %; Stomatocytes 1+; Toxic Granulation 1+
--- NOTE | 2023-06-01 16:07 | Billing Data ---
Date of Service June 01, 2023 Coding Level of Care Code 90082 SUB INP/OBS CARE
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
--- NOTE | 2023-06-01 19:23 | XCELERA ---
[id number] [id number]
[2023-06-02 06:32] LABS: BUN Creatinine Ratio 8.8 (10-20); Calcium 8.9 mg/dl (8.6-10.3); Creatinine Clr Calc Pharmacy 90.4 ml/min; Est GFR (African American) 119.9 ml/min; Est GFR (Non-African American) 103.4 ml/min; Potassium 3.2 mmol/L (3.5-5.1)
--- NOTE | 2023-06-02 06:45 | Hospitalist Progress Note ---
Date of Service June 02, 2023 Assessment & Plan (1) Sepsis: (2) Community acquired pneumonia: (3) Chronic obstructive pulmonary disease on long-term inhaled steroid therapy: (4) Engages in vaping: (5) Allergic asthma: Plan Pt is a 47 yo female with a past medical history of extensive smoking hx, current vaping, COPD not requiring home O2, and bronchiectasis who presents to the hospital on 05/28 for community acquired pneumonia with sepsis. #Sepsis #Strep pneumo bacteremia - Source is most likely her concurrent pneumonia - Lactate initial 3.1 - s/p 2L NS bolus on 05/28 - blood cx; strep pneumo, appreciate susceptibilities, repeat cx pending - echo done in the stting of gram + bacteremia; pending - will consult ID for gram + bacteremia; pending - continue IV CTX today #Community acquired pneumonia - CXR 05/28 showed "Airspace consolidation throughout the left lung favors pneumonia" - Continue incentive spirometer, flutter valve - Pleuritic pain - Acetaminophen 1st line, Toradol 2nd line, oxycodone 3rd line - Follow up CXR in 4-6 weeks recommended for resolution especially with smoking history - AB per above #Chronic obstructive pulmonary disease on long-term inhaled steroid therapy - No acute exacerbation suspected given lack of improvement of duonebs as outpatient and lack of wheezing on exam - Continue her routine inhalers with duonebs PRN #Allergic asthma #Engages in vaping - Encouraged cessation and she appears motivated to quit VTE prophylaxis; Lovenox 40 mg subQ daily IVF: none Admission and Anticipated Discharge Date Admission Date: May 29, 2023 Subjective Pt is a 47 yo female with a past medical history of extensive smoking hx, current vaping, COPD not requiring home O2, and bronchiectasis who presents to the hospital on 05/28 for community acquired pneumonia with sepsis. Today, Review of Systems Review of Systems: Cardio: denies chest pain, palpitations Resp: denies shortness of breath, dry cough noted GI: denies abdominal pain, nausea, vomiting, Physical Exam Physical Exam: General:Alert and oriented, no acute distress, HEENT: Normocephalic, moist oral mucosa, Cardio: Regular rate and rhythm, no murmur, Resp:Subpar air movement throughout lung buckner, with some crackles noted of the L upper and middle lobe region that are improved today GI: Soft and nontender, nondistended, bowel sounds active Skin: Warm, pink, dry, Psych: Mood-affect congruence. Results & Data Results & Data Vital Signs (Past 12 Hours) Vital Signs Temp Pulse Pulse Resp BP Pulse Ox O2 Del Method 06/02/23 03:17 36.9 C 81 16 120/74 100 Nasal Cannula 06/01/23 23:44 36.8 C 74 18 101/67 99 Nasal Cannula 06/01/23 21:59 89 06/01/23 21:00 Nasal Cannula 06/01/23 19:01 37.1 C 92 H 20 113/75 98 Nasal Cannula O2 Flow Rate 06/02/23 03:17 2 06/01/23 23:44 2 06/01/23 21:59 06/01/23 21:00 2 06/01/23 19:01 2 (5) Allergic asthma Asthma severity: severe Asthma persistence: persistent Asthma complication type: with acute exacerbation Qualified Code(s): J45.51 - Severe persistent asthma with (acute) exacerbation
[2023-06-02 06:54] LABS: Hematocrit (blood only) 35.7 % (37.0-47.0); Hemoglobin 11.3 g/dl (12.0-16.0); Mean Corpuscular Hemoglobin 30.7 pg (25.0-34.0); Mean Corpuscular Hgb Conc 31.7 g/dL (32.0-36.0); Mean Platelet Volume 9.4 fL (9.4-12.4); Nucleated RBC # (auto) 0.02 K/uL (0.00-0.12); Nucleated RBC % (auto) 0.2 %; Platelet Count 295 K/uL (130-400); RDW Coefficient of Variation 15.6 % (11.5-14.5); RDW Standard Deviation 55.8 fL (36.4-46.3); Red Blood Count 3.68 M/uL (4.20-5.40)
[2023-06-02 06:55] LABS: ALC (manual) 1.84 K/uL (1.2-3.4); ANC (manual) 6.69 K/uL (1.4-6.5); Eosinophils % (manual) 1 %; Lymphocytes # (manual) 1.84 K/uL (1.2-3.4); Lymphocytes % (manual) 19 %; Metamyelocytes # (manual) 0.29 K/uL (0-0); Metamyelocytes % (manual) 3 %; Monocytes # (manual) 0.48 K/uL (0.11-0.59); Monocytes % (manual) 5 %; Myelocytes # (manual) 0.29 K/uL (0-0); Myelocytes % (manual) 3 %; Neutrophils # (manual) 6.69 K/uL (1.40-6.50); Neutrophils % (manual) 69 %; Polychromasia 1+; Toxic Granulation 1+
[2023-06-02] MEDS: POTASSIUM CHLORIDE CRTAB 20 MEQ TABCR PO STA (08:15)
--- NOTE | 2023-06-02 13:17 | Discharge Summary ---
Date of Service June 02, 2023 Admission HPI Per Admitting Provider Zeinab Martin is a 47 year old female with extensive smoking and current vaping history, COPD/asthma who presents to the ER with shortness of breath, left-sided chest pain, headache (mainly with coughing), non productive cough and fever. Symptoms started on Thursday - like someone laying on chest the left side of her chest, only painful on inspiration, not positional/exertional. Temp 102 yesterday. Saw PCP today and recommended coming to the ER due to fever and tachycardia. Admission Exam Per Admitting Provider Constitutional: WD/WN, vitals as above Eyes: + anicteric sclerae; normal pupil size ENMT: external ear and nose normal, oropharynx normal Mouth: oral mucous membranes not dry Neck: trachea midline, no thyromegaly Respiratory: normal respiratory effort; no respiratory distress Auscultation: + crackles (coarse left > right sided posteriorly and left laterally); breath sounds present and no diminished lung sounds Cardiovascular: Rate/Rhythm: regular rhythm and + tachycardic Heart Sounds: no murmur Extremities: normal capillary refill; no calf tenderness and no pedal edema Gastrointestinal (Abdomen): normal bowel sounds, soft, nontender, no hepatosplenomegaly Skin: no rashes, warm and dry Psychiatric: A+Ox3, euthymic affect Principal Diagnosis Pneumonia Discharge Exam General:Alert and oriented, no acute distress, HEENT: Normocephalic, moist oral mucosa, Cardio: Regular rate and rhythm, no murmur, Resp:Improvement in air movement noted diffusely, no appreciable crackles or rales GI: Soft and nontender, nondistended, bowel sounds active Skin: Warm, pink, dry, Psych: Mood-affect congruence. Discharge Data Allergies Allergy/AdvReac Type Severity Reaction Status Date / Time azithromycin [From Zithromax] Allergy Severe Anaphylaxis Verified 05/29/23 15:22 erythromycin base AdvReac Mild Nausea Verified 05/29/23 15:22 Consultations 05/29/23 15:23 ED Decision to Admit Stat 06/01/23 09:52 Consult Infectious Diseases Routine Hospital Course (1) Sepsis: (2) Community acquired pneumonia: (3) Chronic obstructive pulmonary disease on long-term inhaled steroid therapy: (4) Engages in vaping: (5) Allergic asthma: Plan Pt is a 47 yo female with a past medical history of extensive smoking hx, current vaping, COPD not requiring home O2, and bronchiectasis who presents to the hospital on 05/28 for community acquired pneumonia with sepsis. #Sepsis #Strep pneumo bacteremia - Source is most likely her concurrent pneumonia - Lactate initial 3.1 - blood cx; strep pneumo, appreciate susceptibilities, repeat cx collected 05/31 n eg at 24 hrs - echo done in the stting of gram + bacteremia; wnl - will consult ID; if repeat BCx negative then she can complete 14 days of abx with Amoxicillin 1g q8h starting from first negative BCx (presumably 05/31, eot 06/13) - given one dose of CTX today prior to discharge #Community acquired pneumonia - CXR 05/28 showed "Airspace consolidation throughout the left lung favors pneumonia" - Continue incentive spirometer, flutter valve - Pleuritic pain - Acetaminophen 1st line, Toradol 2nd line, oxycodone 3rd line - Follow up CXR in 4-6 weeks recommended for resolution especially with smoking history - AB per above #Chronic obstructive pulmonary disease on long-term inhaled steroid therapy - No acute exacerbation suspected given lack of improvement of duonebs as outpatient and lack of wheezing on exam - Continue her routine inhalers with duonebs PRN #Allergic asthma #Engages in vaping - Encouraged cessation and she appears motivated to quit Total Time Total Time Spent Total Time Spent (In Minutes): <30 Discharge Plan Discharge Items Patient Disposition: Home - Self-Care Reason For Visit: SEPSIS, PNEUMONIA Discharge Diagnosis: Pneumonia Activity: Per Instructions section Non-emergency contact: Primary Care Provider Call non-emergency contact if: you have any medication questions, your symptoms worsen and your temperature is above 101.5 Follow-up/Referrals: Ena Chang PA-C [Primary Care Provider] - 06/08/23 7:05 am Diet: Regular Addtl Attending Provider Instructions: You were admitted for community-acquired pneumonia (a lung infection acquired outside the hospital). You were also found to have a bacteria growing in your blood, which seems to most likely have come from your lungs. You were treated with antibiotics to help remove extra fluid from your body. Your symptoms have improved, and we feel it is safe for you to return home to finish your antibiotic course at home. It is essential you not restart vaping once you leave the hospital, especially while you have an infection in your lungs. Medications: Your medication list has been reviewed and reconciled upon discharge to ensure accuracy and continuity of care. An updated list of all your medications is included with your hospital discharge paperwork. Please review this list closely, and make note of any changes. We sent a new medication called Amoxicillin to your pharmacy. Take Amoxicillin as 1 g (1,000 mg) every 8 hours for the next two weeks (until out). This is the antibiotic for your pneumonia. Please do not stop taking early, even if you feel completely better. Start your first dose tomorrow morning when you wake up. Take your medications as instructed; do not skip a dose of your medicines. Make sure all of your doctors know every medicine you are taking (including [id number] medicines, vitamins, and supplements). Call your primary care provider before taking any new medicines (including over- the-counter medicines, vitamins, and supplements), because some of these may interact with your current medications, or may make your symptoms worse. Tell your primary care provider if you cannot afford your medications. Activity: You can do normal everyday activities as your body allows. Take rest breaks if you feel tired. Do not overexert. Stop activity if you have pain, shortness of breath or feel dizzy. Follow-up appointments: Make an appointment with your primary care physician within one week of discharge. A copy of this summary will be sent to them. Every time you see your primary care physician, or any other doctor, bring your medication list and a list of questions. CONTACT YOUR PRIMARY CARE PROVIDER if you experience any of the following: Shortness of breath or difficulty breathing Swelling of your feet, ankles, hands or abdomen Feeling tired with normal activity or experiencing dizziness or fainting Difficulty following your treatment plan, or difficulty taking medications CALL 911 OR GO TO THE EMERGENCY DEPARTMENT if you experience any of the following: Severe abdominal pain or nausea/vomiting Severe chest pain, or chest pain that radiates (moves) to your jaw or arm Sudden, severe shortness of breath or difficulty breathing Thank you for allowing us to participate in your care. Pending Studies at Discharge: No Stand-Alone Forms: My [employer], Smoking Cessation Medications and DC Order Prescriptions: New amoxicillin 500 mg tablet 1,000 mg PO Q8H 14 Days Qty: 84 0RF Continued montelukast 10 mg tablet 10 mg PO DAILY Qty: 30 6RF Georgiagy Ellipta 200-62.5-25 mcg blister with device 1 inh inhalation DAILY Qty: 60 2RF (DME) nebulizers [facility] [place] See Rx Instructions .Route Qty: 1 0RF Rx Instructions: As directed desvenlafaxine succinate [Pristiq] 25 mg tablet extended release 24 hr See Rx Instructions .ROUTE .COMPLEX Rx Instructions: Take 25mg w/ 50mg tablet to equal 75mg by mouth every morning aripiprazole [Abilify] 5 mg tablet 2.5 mg PO DAILY albuterol sulfate 90 mcg/actuation HFA aerosol inhaler 2 puff inhalation QID PRN (Reason: SHORTNESS OF BREATH) Qty: 18 3RF lamotrigine 200 mg tablet 200 mg PO BID trazodone 50 mg tablet 25 - 50 mg PO HS acetaminophen 500 mg Tablet 500 mg PO Q6H PRN (Reason: Pain) ibuprofen [Advil] 200 mg Tablet 200 mg PO Q6H PRN (Reason: Pain) desvenlafaxine succinate 50 mg tablet extended release 24 hr See Rx Instructions .ROUTE .COMPLEX Rx Instructions: Take 50mg w/ 25mg tablet to equal 75mg by mouth every morning Myrbetriq 25 mg tablet extended release 24 hr 25 mg PO DAILY Discharge Orders: Discharge Order (Routine); Ordered 06/02/23 Ordered By: Peace Emanuel Admission Data Admit Date/Time: 05/29/23 15:55 Attending Provider: Cale Garcia Admit Provider: Toro Owens Primary Care Provider: Ena Chang Other Providers: Toro Owens; Tootie Meehan; Janis Moretnsen; Faizan Meza; Cheryl Campbell; Beatriz Castle; Robyn Pereira; Saray Hallman; Usha Oliveros Other Interventions: Discharge Summary Assessment (RN) Last Done: 06/02/23 15:26 Supervising Physician Co-Signing Physician Notes I personally examined the patient and verified all al points of history and exam, discussed case, and agree with decision making with Dr Emanuel Feels better. Feels up to going home. Discussed plan of care. She is comfortable with this. Vitals noted, in general she is awake and alert pleasant no distress. HEENT normocephalic atraumatic mucous membranes moist. Breathing unlabored no accessory muscle use good effort. Skin shows no rashes no pallor or icterus. Neuro without focal deficits Sepsis with bacteremia - strep pneumo - was on IV ceftriaxone while here. Echo and follow-up cultures reassuring. No joint or bone pain. Appreciate ID inputhome on high-dose amoxicillin. Outpatient follow-up. CAP - left lung - with bacteremia - As above -rec'd smoke cessation - with "frequent pneumonias" can also consider checking IgG after recovers from current infection Allergic asthma/COPD - last PFT with severe airflow obstruction with very significant bronchodilator response. -No wheezing on exam/oxygenating well. -on inhaled steroids/LABA/LAMA - continue. Anxiety - continue home meds - Pristiq. continue other home meds, DVT proph - lovenox utilized during her stay Resident Activity Tracking Resident Involvement: Resident Care Provided Care Provided: Adult Hospital Medicine
[2023-06-02] MEDS: cefTRIAXone SODIUM 2,000 MG in DEXTROSE 5 % MINI-B 50 ML IV STA (14:09)
--- NOTE | 2023-06-02 19:05 | Billing Data ---
Date of Service June 02, 2023 Coding Level of Care Code 43079 IN/OBS DISCH 30 MIN/LESS
== END 2023-06-02 15:27 | disposition home or self-care (01) | DRG 871 ==
LOC: ED 11:40 → SUATTDRO 15:55 → EDINP 15:55 → 2S 22:16